=== PATIENT | male | born 2005 | race Caucasian/White ===

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

== ENCOUNTER 2024-01-19 15:00 | Outpatient (RCR) | payer OTHER, SELFPAY ==
--- NOTE | 2023-12-14 15:00 | HP.PTEVAL_ITS ---
Patient's Visit Information Visit Information Visit Information: MALACHI HERRERA is a 18 year old M referred to Physical Therapy by SERGIO RAMIREZ with a diagnosis of Acute Left Shoulder Pain. Date of Evaluation: 12/14/23 Physical Therapist: Charity Saul DPT Visit Plan Frequency: 2x /Week Duration: 4 Weeks Plan: Left Shoulder Pain-Focus on scapular s/s- slow and controlled movements- stay in a pain free strengthening zone. 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 He starts [employer] ball December 29. He played this season- the shoulder bothered him for the last few weeks but he didn't want to sacrifice playing time for his Freshman Season. He was pitching a lot and is having an MRI on his elbow. Went to ortho to have them look at his left shoulder. X-ray was normal- they did not do an MRI- they did a bunch possible RTC and go to therapy for stabilization for strengthening if that doesn't work then they can do an injection. Pain is located in the posterior shoulder. He was chest pressing last week and thats when it hurt really bad. Apprehension test and impingement test bother hurt a lot. Worst: 2/10 Agg: loading up a bat and swing through Eases: rest Best: 0/10. No pain that radiates. No neck pain. No N/T in the fingers. He does chest press, running, yoga, whole band routine during the season couple times a week. They do not pitch count at practice only during games. [employer]- does not plan to go back next season- does not have a plan next season yet. Right hand for writing. Feels that his shoulder is getting better- its more weakness now instead of pain. 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 Sleep: not disturbed. PMHx: broken elbow, collar bone, foot Meds: none Objective Objective: Posture: Forward head, rounded shoulders- can correct but does not maintain Gait: no deviation- good arm swing and trunk rotation Palpation: tender along infra and supraspinatus-biciptal groove ROM: WFL in all planes without pain Strength: Scap s/s: fair minus- moderate winging Flexion: 54 lbs Abd: 40 lbs (7/10) Extn: 36 lbs ER: 24lbs (5/10) at neutral IR: 25lbs no pain IR: 15 lbs felt weakness at 90/90 degrees ER: 14 lbs felt weakness at 90/90 degrees Elbow/Wrist/Hand: WFL Sensation: WNL Special Tests L Shoulder Drop Sign - IS Test: Positive L Shoulder Empty Can - SS: Positive L Shoulder Belly Press - SupScap: Positive L Shoulder Neer - Impingement: Positive L Shoulder Shannon Sony - Impingement: Positive L Shoulder Biceps Load Test - Labrum: Positive L Shoulder Apprehension Test - Anterior Instability: Positive Goals Goal 1:: Patient will report participation in home exercise program activities a minimum of 5 days per week, as adjunct to skilled physical therapy intervention in preparation for independent home management upon discharge. Goal Time Frame: 4-6 Weeks Goal 2:: Patient will report no pain for 1 week Goal 3:: Patient will maintain proper posture t/o tx session to demo increased scap s/s Goal Time Frame: 4-6 Weeks Goal 4:: Patient will bat without pain Goal Time Frame: 4-6 Weeks Goal 5:: Patient will report 80% improvement Goal Time Frame: 4-6 Weeks Rehabilitation Potential Physical Therapy Diagnosis: Patient presents with decreased scapular strength/stabilization and muscular endurance leading to poor posture and increased pain with ADL's. Rehabilitation Potential: Good Anticipated Interventions Therapeutic Exercise to Include: Strength training, Endurance training, Body mechanics, Postural training, Neuromotor development, Dynamic Lumbar Stabilization and Scapular Strength/Stabilization For the Purpose of:: To improve muscle performance and motor function Manual Therapy Techniques to Include: Soft tissue mobilization TENS: Yes Cryotherapy (ice pack, ice massage): Yes Thermo therapy (hot pack): Yes Ultrasound (thermal/non thermal): No Text: Thank you for the opportunity to evaluate your patient. For Medicare and Medicare HMO plans, please review the plan of care and approve it. It will need to be FAXED BACK to us at [phone] for Medicare purposes. For Medicare only, by signing this I certify the plan of care. Please let me know if there are questions or concerns regarding this plan of care. Physician Signature: Date:
--- NOTE | 2024-01-19 15:40 | HP.PTDCSUM ---
Discharge Summary D/C summary: It has been my pleasure to treat MALACHI HERRERA referred by SERGIO RAMIREZ, with the diagnosis of Acute Left Shoulder Pain for a total of 8 visit(s). Discharge Date: Please see the following information for a summary of their discharge status. Subjective Subjective: Patient reports that his left shoulder pain is completely gone with all of his movements. He is back to playing baseball- he has played 10 games and he is working lifting up to #75 boxes. Overall Improvement % Improvement: 90 Objective Objective/Function: Posture: good throughout Gait: no deviation- good arm swing and trunk rotation Palpation: not tender to touch ROM: WFL in all planes without pain Strength: Scap s/s: fair minus- moderate winging Flexion: 65 lbs Abd: 46 lbs (0/10) Extn: 53 lbs ER: 31lbs (0/10) at neutral IR: 31lbs no pain IR: 22 lbs at 90/90 degrees ER: 18 lbs at 90/90 degrees Elbow/Wrist/Hand: WFL Sensation: WNL Goals Goal 1:: Patient will report participation in home exercise program activities a minimum of 5 days per week, as adjunct to skilled physical therapy intervention in preparation for independent home management upon discharge. Goal Progress: Goal Met Goal 2:: Patient will report no pain for 1 week Goal Progress: Goal Met Goal 3:: Patient will maintain proper posture t/o tx session to demo increased scap s/s Goal Progress: Goal Met Goal 4:: Patient will bat without pain Goal Progress: Goal Met Goal 5:: Patient will report 80% improvement Goal Progress: Goal Met Plan Plan: Discharge to home exercise program D/C Information d/c sentence: If there are questions or concerns regarding this patient's physical therapy, please feel free to call me at [phone]. Thank you for the referral of this patient. Sincerely, Charity Saul, DPT Balance/Gait/Functional tests Balance/Special Test Scores Quick DASH Score: 0 Improvement % Improvement: 90
== END 2024-01-19 19:00 | disposition home or self-care (01) ==
LOC: PT 15:00
PROVIDERS: PCP Pediatrics
DX: M25.512 Pain in left shoulder (principal)
CPT/HCPCS: 97110; 97162; 97530

== ENCOUNTER → 2024-06-21 | Outpatient (CLI) | payer OTHER, SELFPAY | END | disposition home or self-care (01) | LOC: US 15:26 | PROVIDERS: PCP Pediatrics; Referring Provider Nurse Practitioner Family; Visit Provider Nurse Practitioner Family | DX: N50.812 Left testicular pain (principal) | CPT/HCPCS: 76870; 93976 ==